=== PATIENT | female | born 1960 | race Caucasian/White ===

== ENCOUNTER 2017-03-22 14:38 | Inpatient (IN) | payer MEDICAID ==
[~2017-03-22] VITALS: Ht 175.3 cm; Wt 88.6 kg
[2017-03-22] MEDS ORDERED: ZOLPIDEM TARTRATE 10 MG TABLET PO PRN (18:00)
[2017-03-22] MEDS ORDERED: PNEUMOCOCCAL VACCINE POLYVALENT 0.5 ML VIAL [PPSV23] IM ONE (18:30)
[2017-03-22] MEDS ORDERED: VENL-67 PO (18:32)
[2017-03-22] MEDS ORDERED: FLUO-191 PO (18:32)
[2017-03-22] MEDS ORDERED: AMLO-511 PO (18:32)
[2017-03-22] MEDS ORDERED: TRAM50TA4 PO (18:32)
[2017-03-22] MEDS ORDERED: OLAN10TA3 PO (18:32)
[2017-03-22 19:26] VITALS: BP 145/106
[2017-03-22 20:00] VITALS: BP 144/94
[2017-03-22] MEDS: LORazepam 2 MG TABLET PO PRN (20:11)
[2017-03-22] MEDS: OLANZapine 10 MG TABLET PO SCH (20:11)
[2017-03-23 06:58] VITALS: BP 131/85
[2017-03-23] MEDS: VENLAFAXINE HCL 75 MG ER CAPSULE PO SCH (08:03)
[2017-03-23] MEDS: HYDROCHLOROTHIAZIDE 25 MG TABLET PO SCH (08:03)
[2017-03-23] MEDS: LORazepam 2 MG TABLET PO PRN ×2 (08:03→17:01)
[2017-03-23] MEDS: AmLODIPine BESYLATE 5 MG TABLET PO SCH (08:03)
[2017-03-23] MEDS: FLUoxetine HCL 20 MG CAPSULE PO SCH (08:03)
[2017-03-23] MEDS: HALOPERIDOL 5 MG TABLET PO PRN ×2 (08:03→17:01)
[2017-03-23 08:36] LABS: BASOPHILS % (AUTO) 0.5 % (0.0-2.0); EOSINOPHILS % (AUTO) 1.4 % (1.0-6.0); HEMATOCRIT 43.6 % (36-46); HEMOGLOBIN 14.2 g/dL (12.0-16.0); LYMPHOCYTES # (AUTO) 2.7 K/uL (1.0-4.8); LYMPHOCYTES % (AUTO) 34.3 % (22.0-44.0); MEAN CORPUSCULAR HGB CONC 32.6 G/dL (31.0-37.0); MEAN CORPUSCULAR VOLUME 92 fL (80-100); MONOCYTES # (AUTO) 0.8 K/uL (0.1-1.0); MONOCYTES % (AUTO) 9.8 % (2.0-9.0); NEUTROPHILS # (AUTO) 4.3 K/uL (1.8-7.7); PLATELET COUNT (AUTO) 321 K/uL (150-450); RED BLOOD CELL COUNT(AUTO) 4.74 MIL/uL (4.00-5.20); RED CELL DISTRIBUTION WIDTH 14.5 % (11.5-14.5); WHITE BLOOD COUNT (AUTO) 7.9 K/uL (4.5-11.0)
[2017-03-23] MEDS ORDERED: MAGNESIUM HYDROXIDE SUSPENSION 30 ML UDCUP PO PRN (08:45)
[2017-03-23] MEDS ORDERED: MAG HYDROX/AL HYDROX/SIMETH ES 30 ML SUSPENSION UDCUP PO PRN (08:45)
[2017-03-23] MEDS ORDERED: LOPERAMIDE HCL 2 MG CAPSULE PO PRN (08:45)
[2017-03-23] MEDS ORDERED: PETROLATUM,WHITE 71 GM JELLY TP PRN (08:45)
[2017-03-23] MEDS ORDERED: ONDANSETRON HCL 4 MG TABLET PO PRN (08:45)
[2017-03-23] MEDS ORDERED: ACETAMINOPHEN 325 MG TABLET PO PRN (08:45)
[2017-03-23] MEDS ORDERED: BENZOCAINE/MENTHOL LOZENGE MM PRN (08:45)
[2017-03-23] MEDS ORDERED: ALBUTEROL SULFATE HFA 90 MCG/PUFF 8 GM INHALER IH PRN (08:45)
[2017-03-23] MEDS ORDERED: IBUPROFEN 600 MG TABLET PO PRN (08:45)
[2017-03-23] MEDS ORDERED: BACITRACIN 28.4 GM OINTMENT TP PRN (08:45)
[2017-03-23] MEDS ORDERED: CloNIDine HCL 0.1 MG TABLET PO PRN (08:45)
[2017-03-23 09:00] LABS: HEMOGLOBIN A1C 6.1 % (4.5-6.2)
[2017-03-23 09:38] LABS: ALBUMIN 3.8 g/dL (3.4-5.0); BILIRUBIN,TOTAL 0.6 mg/dL (0.1-1.0); CALCIUM, TOTAL 9.4 mg/dL (8.8-10.5); CHOL/HDL RATIO 3.6 (3.9-5.7); CREATININE 1.01 mg/dL (0.60-1.30); POTASSIUM 4.2 mmol/L (3.5-5.1); THYROID STIMULATING HORMONE 1.28 uIU/mL (0.36-3.74); TOTAL PROTEIN, SERUM 7.2 g/dL (6.4-8.2)
[2017-03-23 12:06] VITALS: BP 127/93
[2017-03-23 16:04] VITALS: BP 117/75
[2017-03-23] MEDS: OLANZapine 10 MG TABLET PO SCH (20:31)
[2017-03-24 06:56] VITALS: BP 116/90
[2017-03-24 08:02] VITALS: BP 110/65
[2017-03-24] MEDS: AmLODIPine BESYLATE 5 MG TABLET PO SCH (08:30)
[2017-03-24] MEDS: HYDROCHLOROTHIAZIDE 25 MG TABLET PO SCH (08:30)
[2017-03-24] MEDS: VENLAFAXINE HCL 75 MG ER CAPSULE PO SCH (08:30)
[2017-03-24] MEDS: FLUoxetine HCL 20 MG CAPSULE PO SCH (08:30)
[2017-03-24] MEDS: LORazepam 2 MG TABLET PO PRN (08:35)
[2017-03-24 16:39] VITALS: BP 119/88
[2017-03-24] MEDS: OLANZapine 10 MG TABLET PO SCH (20:04)
[2017-03-25] MEDS: FLUoxetine HCL 20 MG CAPSULE PO SCH (08:23)
[2017-03-25] MEDS: HYDROCHLOROTHIAZIDE 25 MG TABLET PO SCH (08:23)
[2017-03-25] MEDS: AmLODIPine BESYLATE 5 MG TABLET PO SCH (08:23)
[2017-03-25] MEDS: VENLAFAXINE HCL 75 MG ER CAPSULE PO SCH (08:23)
[2017-03-25 08:51] VITALS: BP 126/92
[2017-03-25] MEDS: HALOPERIDOL 5 MG TABLET PO PRN ×2 (09:35→20:40)
[2017-03-25] MEDS: LORazepam 2 MG TABLET PO PRN ×2 (09:35→20:40)
[2017-03-25 16:15] VITALS: BP 109/98
[2017-03-25] MEDS: OLANZapine 10 MG TABLET PO SCH (20:39)
[2017-03-26 06:14] VITALS: BP 121/90
[2017-03-26 08:20] VITALS: BP 106/63
[2017-03-26] MEDS: AmLODIPine BESYLATE 5 MG TABLET PO SCH (09:31)
[2017-03-26] MEDS: VENLAFAXINE HCL 75 MG ER CAPSULE PO SCH (09:31)
[2017-03-26] MEDS: HYDROCHLOROTHIAZIDE 25 MG TABLET PO SCH (09:31)
[2017-03-26] MEDS: FLUoxetine HCL 20 MG CAPSULE PO SCH (09:31)
[2017-03-26] MEDS ORDERED: FLUoxetine HCL 20 MG CAPSULE PO ONE (09:45)
[2017-03-26 16:00] VITALS: BP 118/82
[2017-03-26] MEDS: LORazepam 2 MG TABLET PO PRN (16:54)
[2017-03-26] MEDS: HALOPERIDOL 5 MG TABLET PO PRN (16:54)
[2017-03-26] MEDS: OLANZapine 10 MG TABLET PO SCH (20:10)
[2017-03-27 06:27] VITALS: BP 120/90
[2017-03-27] MEDS: AmLODIPine BESYLATE 5 MG TABLET PO SCH (08:18)
[2017-03-27] MEDS: FLUoxetine HCL 20 MG CAPSULE PO SCH (08:18)
[2017-03-27] MEDS: VENLAFAXINE HCL 75 MG ER CAPSULE PO SCH (08:18)
[2017-03-27] MEDS: HYDROCHLOROTHIAZIDE 25 MG TABLET PO SCH (08:19)
[2017-03-27] MEDS: LORazepam 2 MG TABLET PO PRN ×2 (08:48→17:11)
[2017-03-27 08:57] VITALS: BP 100/66
[2017-03-27 16:00] VITALS: BP 121/89
[2017-03-27] MEDS: OLANZapine 10 MG TABLET PO SCH (20:38)
[2017-03-28 03:54] VITALS: BP 120/88
[2017-03-28 08:13] VITALS: BP 100/69
[2017-03-28] MEDS: FLUoxetine HCL 20 MG CAPSULE PO SCH (08:57)
[2017-03-28] MEDS: VENLAFAXINE HCL 75 MG ER CAPSULE PO SCH (08:57)
[2017-03-28] MEDS: HYDROCHLOROTHIAZIDE 25 MG TABLET PO SCH (08:57)
[2017-03-28] MEDS: AmLODIPine BESYLATE 5 MG TABLET PO SCH (08:57)
[2017-03-28] MEDS: LORazepam 2 MG TABLET PO PRN (16:14)
[2017-03-28 16:16] VITALS: BP 112/67
[2017-03-28] MEDS: TraMADol HCL 50 MG TABLET PO PRN (19:10)
[2017-03-28] MEDS: OLANZapine 10 MG TABLET PO SCH (20:57)
[2017-03-29 06:09] VITALS: BP 110/65
[2017-03-29] MEDS: VENLAFAXINE HCL 75 MG ER CAPSULE PO SCH (08:10)
[2017-03-29] MEDS: FLUoxetine HCL 20 MG CAPSULE PO SCH (08:10)
[2017-03-29] MEDS: AmLODIPine BESYLATE 5 MG TABLET PO SCH (08:11)
[2017-03-29] MEDS: HYDROCHLOROTHIAZIDE 25 MG TABLET PO SCH (08:11)
[2017-03-29 08:18] VITALS: BP 116/71
[2017-03-29 16:13] VITALS: BP 115/77
[2017-03-29] MEDS: TraMADol HCL 50 MG TABLET PO PRN (17:27)
[2017-03-29] MEDS: LORazepam 2 MG TABLET PO PRN (17:27)
[2017-03-29] MEDS: OLANZapine 10 MG TABLET PO SCH (21:04)
[2017-03-30 02:32] VITALS: BP 118/67
[2017-03-30 08:32] VITALS: BP 118/62
[2017-03-30] MEDS: VENLAFAXINE HCL 75 MG ER CAPSULE PO SCH (09:22)
[2017-03-30] MEDS: FLUoxetine HCL 20 MG CAPSULE PO SCH (09:23)
[2017-03-30] MEDS: AmLODIPine BESYLATE 5 MG TABLET PO SCH (09:23)
[2017-03-30] MEDS: HYDROCHLOROTHIAZIDE 25 MG TABLET PO SCH (09:23)
[2017-03-30] MEDS: DICLOFENAC SODIUM 1% 100 GM GEL [2GM] TP SCH ×2 (11:59→17:13)
[2017-03-30 16:00] VITALS: BP 115/79
[2017-03-30] MEDS: LORazepam 2 MG TABLET PO PRN (17:14)
[2017-03-30] MEDS: TraMADol HCL 50 MG TABLET PO PRN (19:00)
[2017-03-30] MEDS: OLANZapine 7.5 MG TABLET PO SCH (20:45)
[2017-03-31 07:40] VITALS: BP 109/78
[2017-03-31 08:04] VITALS: BP 109/78
[2017-03-31] MEDS: DICLOFENAC SODIUM 1% 100 GM GEL [2GM] TP SCH ×2 (08:24→16:15)
[2017-03-31] MEDS: AmLODIPine BESYLATE 5 MG TABLET PO SCH (08:24)
[2017-03-31] MEDS: HYDROCHLOROTHIAZIDE 25 MG TABLET PO SCH (08:24)
[2017-03-31] MEDS: FLUoxetine HCL 20 MG CAPSULE PO SCH (08:24)
[2017-03-31] MEDS: VENLAFAXINE HCL 75 MG ER CAPSULE PO SCH (08:24)
[2017-03-31 08:25] VITALS: BP 102/67
[2017-03-31 09:00] VITALS: BP 118/83
[2017-03-31 10:00] VITALS: BP 110/88
[2017-03-31] MEDS: LORazepam 2 MG TABLET PO PRN (14:27)
[2017-03-31] MEDS: TraMADol HCL 50 MG TABLET PO PRN (16:25)
[2017-03-31] MEDS: OLANZapine 7.5 MG TABLET PO SCH (20:30)
[2017-04-01 08:33] VITALS: BP 128/96
[2017-04-01] MEDS: VENLAFAXINE HCL 75 MG ER CAPSULE PO SCH (09:03)
[2017-04-01] MEDS: DICLOFENAC SODIUM 1% 100 GM GEL [2GM] TP SCH ×2 (09:03→16:33)
[2017-04-01] MEDS: HYDROCHLOROTHIAZIDE 25 MG TABLET PO SCH (09:03)
[2017-04-01] MEDS: FLUoxetine HCL 20 MG CAPSULE PO SCH (09:03)
[2017-04-01] MEDS: AmLODIPine BESYLATE 5 MG TABLET PO SCH (09:03)
[2017-04-01] MEDS: LORazepam 2 MG TABLET PO PRN (16:04)
[2017-04-01] MEDS: TraMADol HCL 50 MG TABLET PO PRN (16:04)
[2017-04-01 16:26] VITALS: BP 137/90
[2017-04-01 17:04] VITALS: BP 129/85
[2017-04-01] MEDS: OLANZapine 7.5 MG TABLET PO SCH (20:14)
[2017-04-02 08:07] VITALS: BP 126/96
[2017-04-02] MEDS: VENLAFAXINE HCL 75 MG ER CAPSULE PO SCH (09:25)
[2017-04-02] MEDS: AmLODIPine BESYLATE 5 MG TABLET PO SCH (09:26)
[2017-04-02] MEDS: DICLOFENAC SODIUM 1% 100 GM GEL [2GM] TP SCH (09:26)
[2017-04-02] MEDS: HYDROCHLOROTHIAZIDE 25 MG TABLET PO SCH (09:26)
[2017-04-02] MEDS: LORazepam 2 MG TABLET PO PRN ×2 (09:26→14:07)
[2017-04-02] MEDS: FLUoxetine HCL 20 MG CAPSULE PO SCH (09:26)
[2017-04-02 17:19] VITALS: BP 100/69
[2017-04-02] MEDS: OLANZapine 7.5 MG TABLET PO SCH (20:20)
[2017-04-03 07:22] VITALS: BP 110/70
[2017-04-03] MEDS: VENLAFAXINE HCL 75 MG ER CAPSULE PO SCH (08:36)
[2017-04-03] MEDS: AmLODIPine BESYLATE 5 MG TABLET PO SCH (08:37)
[2017-04-03] MEDS: FLUoxetine HCL 20 MG CAPSULE PO SCH (08:37)
[2017-04-03] MEDS: HYDROCHLOROTHIAZIDE 25 MG TABLET PO SCH (08:37)
[2017-04-03 08:55] VITALS: BP 107/78
[2017-04-03] MEDS: LORazepam 2 MG TABLET PO PRN ×2 (12:23→18:59)
[2017-04-03] MEDS: TraMADol HCL 50 MG TABLET PO PRN (12:24)
[2017-04-03 16:23] VITALS: BP 128/100
[2017-04-03] MEDS: BusPIRone HCL 5 MG TABLET PO SCH (16:40)
[2017-04-03] MEDS: OLANZapine 10 MG TABLET PO SCH (20:01)
[2017-04-04 01:20] VITALS: BP 117/78
[2017-04-04] MEDS: TraMADol HCL 50 MG TABLET PO PRN (01:22)
[2017-04-04 08:31] VITALS: BP 104/73
[2017-04-04] MEDS: BusPIRone HCL 5 MG TABLET PO SCH ×3 (09:04→16:31)
[2017-04-04] MEDS: HYDROCHLOROTHIAZIDE 25 MG TABLET PO SCH (09:04)
[2017-04-04] MEDS: AmLODIPine BESYLATE 5 MG TABLET PO SCH (09:04)
[2017-04-04] MEDS: LORazepam 2 MG TABLET PO PRN ×2 (09:04→16:31)
[2017-04-04] MEDS: VENLAFAXINE HCL 75 MG ER CAPSULE PO SCH (09:04)
[2017-04-04] MEDS: HALOPERIDOL 5 MG TABLET PO PRN ×2 (11:38→16:31)
[2017-04-04 16:22] VITALS: BP 106/75
[2017-04-04] MEDS: OLANZapine 10 MG TABLET PO SCH (20:36)
[2017-04-05 05:05] VITALS: BP 112/63
[2017-04-05 08:15] VITALS: BP 127/96
[2017-04-05] MEDS: AmLODIPine BESYLATE 5 MG TABLET PO SCH (09:01)
[2017-04-05] MEDS: HYDROCHLOROTHIAZIDE 25 MG TABLET PO SCH (09:01)
[2017-04-05] MEDS: BusPIRone HCL 5 MG TABLET PO SCH ×3 (09:01→16:22)
[2017-04-05] MEDS: VENLAFAXINE HCL 75 MG ER CAPSULE PO SCH (09:01)
[2017-04-05 16:25] VITALS: BP 128/94
[2017-04-05] MEDS: TraMADol HCL 50 MG TABLET PO PRN (16:25)
[2017-04-05 16:50] VITALS: BP 128/94
[2017-04-05] MEDS: OLANZapine 10 MG TABLET PO SCH (20:24)
[2017-04-06 05:21] VITALS: BP 123/71
[2017-04-06 08:51] VITALS: BP 92/58
[2017-04-06] MEDS: AmLODIPine BESYLATE 5 MG TABLET PO SCH (09:00)
[2017-04-06] MEDS: HYDROCHLOROTHIAZIDE 25 MG TABLET PO SCH (09:00)
[2017-04-06] MEDS: VENLAFAXINE HCL 75 MG ER CAPSULE PO SCH (09:39)
[2017-04-06] MEDS: BusPIRone HCL 5 MG TABLET PO SCH (09:39)
[2017-04-06] MEDS: LORazepam 2 MG TABLET PO PRN ×2 (10:17→16:44)
[2017-04-06] MEDS: BusPIRone HCL 10 MG TABLET PO SCH ×2 (13:01→16:44)
[2017-04-06] MEDS: TraMADol HCL 50 MG TABLET PO PRN (15:17)
[2017-04-06 15:19] VITALS: BP 116/70
[2017-04-06 16:00] VITALS: BP 116/70
[2017-04-06] MEDS: HALOPERIDOL 5 MG TABLET PO PRN (16:44)
[2017-04-06] MEDS: OLANZapine 10 MG TABLET PO SCH (20:57)
[2017-04-07 00:38] VITALS: BP 118/74
[2017-04-07 08:04] VITALS: BP 105/60
[2017-04-07] MEDS: HYDROCHLOROTHIAZIDE 25 MG TABLET PO SCH (08:47)
[2017-04-07] MEDS: BusPIRone HCL 10 MG TABLET PO SCH ×3 (08:47→16:26)
[2017-04-07] MEDS: AmLODIPine BESYLATE 5 MG TABLET PO SCH (08:47)
[2017-04-07] MEDS: VENLAFAXINE HCL 75 MG ER CAPSULE PO SCH (08:48)
[2017-04-07] MEDS: LORazepam 2 MG TABLET PO PRN (16:26)
[2017-04-07] MEDS: HALOPERIDOL 5 MG TABLET PO PRN (16:26)
[2017-04-07 16:46] VITALS: BP 110/78
[2017-04-07] MEDS: OLANZapine 10 MG TABLET PO SCH (20:13)
[2017-04-08 03:50] VITALS: BP 112/83
[2017-04-08 08:22] VITALS: BP 119/84
[2017-04-08] MEDS: HYDROCHLOROTHIAZIDE 25 MG TABLET PO SCH (08:45)
[2017-04-08] MEDS: BusPIRone HCL 10 MG TABLET PO SCH ×3 (08:46→16:17)
[2017-04-08] MEDS: AmLODIPine BESYLATE 5 MG TABLET PO SCH (08:46)
[2017-04-08] MEDS: VENLAFAXINE HCL 75 MG ER CAPSULE PO SCH (08:46)
[2017-04-08] MEDS: LORazepam 2 MG TABLET PO PRN ×2 (11:58→17:11)
[2017-04-08 11:59] VITALS: BP 115/86
[2017-04-08] MEDS: TraMADol HCL 50 MG TABLET PO PRN (11:59)
[2017-04-08 16:00] VITALS: BP 93/72
[2017-04-08 17:11] VITALS: BP 128/97
[2017-04-08] MEDS: HALOPERIDOL 5 MG TABLET PO PRN (17:11)
[2017-04-08] MEDS: OLANZapine 10 MG TABLET PO SCH (20:14)
[2017-04-09 01:22] VITALS: BP 102/76
[2017-04-09 08:14] VITALS: BP 100/76
[2017-04-09] MEDS: HYDROCHLOROTHIAZIDE 25 MG TABLET PO SCH (08:38)
[2017-04-09] MEDS: VENLAFAXINE HCL 75 MG ER CAPSULE PO SCH (08:38)
[2017-04-09] MEDS: BusPIRone HCL 10 MG TABLET PO SCH ×3 (08:38→16:35)
[2017-04-09] MEDS: AmLODIPine BESYLATE 5 MG TABLET PO SCH (08:38)
[2017-04-09] MEDS: LORazepam 2 MG TABLET PO PRN ×2 (08:39→16:35)
[2017-04-09] MEDS: HALOPERIDOL 5 MG TABLET PO PRN (08:39)
[2017-04-09 10:50] VITALS: BP 114/71
[2017-04-09] MEDS: TraMADol HCL 50 MG TABLET PO PRN (10:50)
[2017-04-09 16:04] VITALS: BP 109/72
[2017-04-09] MEDS: OLANZapine 10 MG TABLET PO SCH (20:10)
[2017-04-10 01:16] VITALS: BP 129/72
[2017-04-10 08:24] VITALS: BP 108/70
[2017-04-10] MEDS: VENLAFAXINE HCL 75 MG ER CAPSULE PO SCH (09:48)
[2017-04-10] MEDS: LORazepam 2 MG TABLET PO PRN ×2 (09:48→17:13)
[2017-04-10] MEDS: HALOPERIDOL 5 MG TABLET PO PRN ×2 (09:48→17:13)
[2017-04-10] MEDS: HYDROCHLOROTHIAZIDE 25 MG TABLET PO SCH (09:49)
[2017-04-10] MEDS: AmLODIPine BESYLATE 5 MG TABLET PO SCH (09:49)
[2017-04-10] MEDS: BusPIRone HCL 10 MG TABLET PO SCH ×3 (09:49→17:12)
[2017-04-10 11:56] VITALS: BP 114/76
[2017-04-10] MEDS: TraMADol HCL 50 MG TABLET PO PRN (11:56)
[2017-04-10] MEDS ORDERED: HYDR25TA PO (14:27)
[2017-04-10] MEDS ORDERED: OLAN10TA3 PO (14:27)
[2017-04-10] MEDS ORDERED: BUSP10TA23 PO (14:27)
[2017-04-10 16:13] VITALS: BP 128/76
[2017-04-10] MEDS: OLANZapine 10 MG TABLET PO SCH (20:48)
[2017-04-11] MEDS: HYDROCHLOROTHIAZIDE 25 MG TABLET PO SCH (08:47)
[2017-04-11] MEDS: BusPIRone HCL 10 MG TABLET PO SCH ×2 (08:47→13:30)
[2017-04-11] MEDS: VENLAFAXINE HCL 75 MG ER CAPSULE PO SCH (08:47)
[2017-04-11] MEDS: LORazepam 2 MG TABLET PO PRN (08:48)
[2017-04-11] MEDS: AmLODIPine BESYLATE 5 MG TABLET PO SCH (08:48)
[2017-04-11 08:49] VITALS: BP 126/74
[2017-04-11 12:16] VITALS: BP 123/97
[2017-04-11] MEDS: TraMADol HCL 50 MG TABLET PO PRN (14:32)
[2017-04-11 14:33] VITALS: BP 105/83
== END 2017-04-11 14:30 | disposition home or self-care (01) | DRG 750 ==
LOC: B3A 18:05
DX: F25.1 Schizoaffective disorder, depressive type (principal); R45.851 Suicidal ideations; J44.9 Chronic obstructive pulmonary disease, unspecified; I10 Essential (primary) hypertension; G89.29 Other chronic pain; M54.9 Dorsalgia, unspecified; Z88.8 Allergy status to other drugs, medicaments and biological substances; M19.90 Unspecified osteoarthritis, unspecified site; G47.00 Insomnia, unspecified; K59.00 Constipation, unspecified; F10.10 Alcohol abuse, uncomplicated; Z72.0 Tobacco use; M25.552 Pain in left hip
CPT/HCPCS: 83036; 84439; 84443; 87081; 90471; J3535